=== PATIENT | female | born 1965 | race Native Hawaiian/Other Pacific Islander ===

== ENCOUNTER 2017-11-06 09:50 | Outpatient (CLI) | payer OTHER ==
[~2017-11-06 09:50] MED LIST: CYCL10TA35 PO; LISI20TA24 PO; PROGESTERONE TOP; SERT100T PO; [UNRECOGNIZED DRUG - OTHER] EX
== END 2017-11-06 22:46 | disposition home or self-care (01) ==
LOC: MAMMO 09:50
DX: Z12.31 Encounter for screening mammogram for malignant neoplasm of breast (principal)

== ENCOUNTER 2018-02-11 15:35 | Emergency (ER) | payer OTHER ==
[~2018-02-11] VITALS: Ht 162.6 cm; Wt 77.1 kg
[2018-02-11 19:34] LABS: PLATELET COUNT 241 K/uL (152-353)
[2018-02-11 19:37] LABS: POTASSIUM 4.5 mmol/L (3.6-5.2)
[2018-02-11 20:43] VITALS: BP 184/92; TEMP 99.3
== END 2018-02-11 20:44 | disposition home or self-care (01) ==
LOC: ED 15:35
DX: M47.892 Other spondylosis, cervical region (principal); M47.896 Other spondylosis, lumbar region
CPT/HCPCS: 80053; 81000; 85027; 96372; 99283; J1885

== ENCOUNTER 2018-02-14 19:06 | Emergency (ER) | payer OTHER ==
[~2018-02-14] VITALS: Ht 162.6 cm; Wt 77.1 kg
[2018-02-14 20:40] VITALS: BP 156/80; TEMP 97.7
== END 2018-02-14 20:44 | disposition home or self-care (01) ==
LOC: ED 19:06
DX: J02.0 Streptococcal pharyngitis (principal)
CPT/HCPCS: 87502; 87651; 99283

== ENCOUNTER 2018-04-16 10:40 | Emergency (ER) | payer OTHER ==
[~2018-04-16] VITALS: Ht 162.6 cm; Wt 77.1 kg
[2018-04-16 13:10] LABS: PLATELET COUNT 208 K/uL (152-353)
[2018-04-16 13:16] LABS: SODIUM 144 mmol/L (136-145)
[2018-04-16 14:45] VITALS: BP 158/76; TEMP 98.6
== END 2018-04-16 14:45 | disposition home or self-care (01) ==
LOC: EDP 10:40 → ED 10:40 → EDSTATUS 10:53 → ED 14:45
PROVIDERS: Emergency Medicine
DX: G62.9 Polyneuropathy, unspecified (principal)
CPT/HCPCS: 36415; 80053; 83735; 84443; 84484; 85027; 93005; 99284

== ENCOUNTER 2018-05-10 13:15 | Outpatient (CLI) | payer OTHER | END 2018-05-10 13:19 | disposition short-term general hospital (02) | LOC: AMB 13:15 | DX: M54.5 Low back pain (principal); W10.8XXA Fall (on) (from) other stairs and steps, initial encounter; Y93.89 Activity, other specified; Y92.89 Other specified places as the place of occurrence of the external cause | CPT/HCPCS: A0425; A0429 ==

== ENCOUNTER 2018-05-10 13:24 | Emergency (ER) | payer OTHER ==
[~2018-05-10] VITALS: Ht 162.6 cm; Wt 77.1 kg
[2018-05-10 15:35] VITALS: BP 156/83; TEMP 97.8
== END 2018-05-10 15:35 | disposition home or self-care (01) ==
LOC: ED 13:24
DX: S30.0XXA Contusion of lower back and pelvis, initial encounter (principal); S33.5XXA Sprain of ligaments of lumbar spine, initial encounter; W19.XXXA Unspecified fall, initial encounter; Y92.521 Bus station as the place of occurrence of the external cause
CPT/HCPCS: 96372; 99283; J1885; J7040

== ENCOUNTER 2018-05-28 21:03 | Emergency (ER) | payer OTHER ==
[~2018-05-28] VITALS: Ht 162.6 cm; Wt 77.1 kg
[2018-05-28 21:19] VITALS: TEMP 98
[2018-05-28 21:48] LABS: PLATELET COUNT 258 K/uL (152-353)
[2018-05-28 22:27] LABS: POTASSIUM 3.8 mmol/L (3.6-5.2); SODIUM 139 mmol/L (136-145)
[2018-05-28 23:52] VITALS: BP 150/95
== END 2018-05-28 23:59 | disposition home or self-care (01) ==
LOC: ED 21:03
PROVIDERS: Internal Medicine
DX: N30.90 Cystitis, unspecified without hematuria (principal); R07.89 Other chest pain; R41.82 Altered mental status, unspecified; I10 Essential (primary) hypertension; I45.81 Long QT syndrome
CPT/HCPCS: 36415; 80053; 80307; 80320; 81000; 82140; 82550; 84484; 85027; 87088; 93005; 96374; 99284; J1885

== ENCOUNTER 2020-01-03 10:09 | Emergency (ER) | payer BC ==
[~2020-01-03] VITALS: Ht 162.6 cm; Wt 90.7 kg
[2020-01-03 10:15] VITALS: BP 151/86; TEMP 98.3
== END 2020-01-03 11:58 | disposition home or self-care (01) ==
LOC: ED 10:09
DX: L25.9 Unspecified contact dermatitis, unspecified cause (principal); S40.862A Insect bite (nonvenomous) of left upper arm, initial encounter; S50.862A Insect bite (nonvenomous) of left forearm, initial encounter; S50.361A Insect bite (nonvenomous) of right elbow, initial encounter; S70.362A Insect bite (nonvenomous), left thigh, initial encounter; S70.361A Insect bite (nonvenomous), right thigh, initial encounter; W57.XXXA Bitten or stung by nonvenomous insect and other nonvenomous arthropods, initial encounter; Y92.89 Other specified places as the place of occurrence of the external cause
CPT/HCPCS: 96372; 99283; J2930

== ENCOUNTER 2020-08-15 08:04 | Outpatient (CLI) | payer BC | END 2020-08-15 19:41 | disposition home or self-care (01) | LOC: CT 08:04 | PROVIDERS: ATTEND Specialist | DX: R31.9 Hematuria, unspecified (principal); N28.9 Disorder of kidney and ureter, unspecified ==